=== PATIENT | male | born 1950 | race African-American/Black ===

== ENCOUNTER 2017-01-19 18:43 | Emergency (ER) | payer MEDICARE, OTHER ==
[2017-01-19] MEDS ORDERED: traMADol HCl 50 MG TAB ONE ×2 (19:42)
[2017-01-19] MEDS ORDERED: AMOXicillin 250 MG CAP ONE (19:43)
[2017-01-19] MEDS ORDERED: Ketorolac Tromethamine 60 MG/2 ML VIAL ONE (19:43)
== END 2017-01-19 20:11 | disposition home or self-care (01) ==
LOC: MADERS 18:43
DX: M26.621 Arthralgia of right temporomandibular joint (principal); I89.8 Other specified noninfective disorders of lymphatic vessels and lymph nodes; J44.9 Chronic obstructive pulmonary disease, unspecified; I25.10 Atherosclerotic heart disease of native coronary artery without angina pectoris; E11.9 Type 2 diabetes mellitus without complications; E78.5 Hyperlipidemia, unspecified; E78.00 Pure hypercholesterolemia, unspecified; I10 Essential (primary) hypertension; F32.9 Major depressive disorder, single episode, unspecified; Z79.82 Long term (current) use of aspirin; Z79.84 Long term (current) use of oral hypoglycemic drugs; Z79.899 Other long term (current) drug therapy
CPT/HCPCS: 96372; J1885

== ENCOUNTER 2017-05-15 10:54 | Emergency (ER) | payer MEDICARE, OTHER ==
[2017-05-15] MEDS ORDERED: Tetracaine 0.5% OPHTH SOLN/PF 4 ML BOT ONE (11:15)
[2017-05-15] MEDS ORDERED: Tobramycin Sulfate 0.3% Ophth Susp 5 ml Bottle ONE (11:54)
== END 2017-05-15 12:02 | disposition home or self-care (01) ==
LOC: MADERS 10:54
DX: T15.02XA Foreign body in cornea, left eye, initial encounter (principal); T15.12XA Foreign body in conjunctival sac, left eye, initial encounter; J44.9 Chronic obstructive pulmonary disease, unspecified; E11.9 Type 2 diabetes mellitus without complications; E78.5 Hyperlipidemia, unspecified; I10 Essential (primary) hypertension; I25.119 Atherosclerotic heart disease of native coronary artery with unspecified angina pectoris; F32.9 Major depressive disorder, single episode, unspecified; Z79.82 Long term (current) use of aspirin; Z79.899 Other long term (current) drug therapy
CPT/HCPCS: 65205

== ENCOUNTER 2017-07-13 17:08 | Emergency (ER) | payer MEDICARE, MEDICAID, OTHER | END 2017-07-13 19:00 | disposition left against medical advice (07) | LOC: MADERS 17:08 | DX: E11.65 Type 2 diabetes mellitus with hyperglycemia (principal); J44.9 Chronic obstructive pulmonary disease, unspecified; I25.10 Atherosclerotic heart disease of native coronary artery without angina pectoris; E78.5 Hyperlipidemia, unspecified; I10 Essential (primary) hypertension; F32.9 Major depressive disorder, single episode, unspecified; Z79.82 Long term (current) use of aspirin; Z79.899 Other long term (current) drug therapy; Z79.4 Long term (current) use of insulin | CPT/HCPCS: 36416 ==

== ENCOUNTER 2018-01-12 13:53 | Emergency (ER) | payer MEDICARE, OTHER ==
[~2018-01-12 13:53] MED LIST: Sodium Chloride 0.9% 1,000 ML BAG ONE
--- NOTE | 2018-01-12 14:28 | RAD ---
PORTABLE AP CHEST: Date: 01/12/18 HISTORY: Dyspnea. COMPARISON: 04/03/17. FINDINGS: Cardiac silhouette is magnified by projection. Pulmonary vasculature is within normal limits. The james gs remain clear. Degenerative changes are again present in the spine. IMPRESSION: Stable chest without evidence of an acute cardiopulmonary process. POS: [facility]
[2018-01-12 14:34] LABS: #Basophils 0.1 thou/uL (0.0-0.2); #Eosinphils 0.1 thou/uL (0.0-0.7); #Lymphocytes 1.7 thou/uL (1.20-3.40); #Monocytes 0.4 thou/uL (0.11-0.59); #Neutrophils 3.1 thou/uL (1.40-6.50); %Basophils 1.2 % (0.0-1.0); %Eosinophils 1.6 % (0.0-10.0); %Lymphocytes 31.8 % (21.0-51.0); %Monocytes 7.3 % (0.0-10.0); %Neutrophils 58.2 % (42.0-75.0); Hemoglobin 12.2 g/dL (14.0-18.0); Mean Corpuscular HGB CONC 31.4 g/dL (32.0-36.0); Mean Corpuscular Hemoglobin 25.4 pg (27.0-31.0); Mean Corpuscular Volume 80.8 fl (80.0-94.0); Mean Platelet Volume 7.3 fL (7.4-10.4); Platelet Count 184 thou/uL (130-400); RBC Distribution Width 12.4 % (11.5-14.5); Red Blood Cell (RBC) Count 4.82 mill/uL (4.70-6.10); White Blood Cell (WBC) Count 5.3 thou/uL (4.8-10.8)
[2018-01-12 14:52] LABS: Anion Gap 15 mmol/L (10-20); BUN (Urea Nitrogen) 16 mg/dL (8.4-25.7); Calc. Creatinine Clearance 0 mL/min (70-130); Calcium 9.1 mg/dL (7.8-10.44); Carbon Dioxide 29 mmol/L (23-31); Chloride 105 mmol/L (98-107); Estimated GFR-MDRD 45; Glucose 169 mg/dL (80-115); Potassium 4.3 mmol/L (3.5-5.1); Sodium 145 mmol/L (136-145)
[2018-01-12] MEDS ORDERED: Ondansetron HCl/PF 4 MG/2 ML Vial ONE ×2 (15:09)
== END 2018-01-12 15:50 | disposition home or self-care (01) ==
LOC: MADERS 13:53
DX: R53.1 Weakness (principal); R42 Dizziness and giddiness; J44.9 Chronic obstructive pulmonary disease, unspecified; E11.9 Type 2 diabetes mellitus without complications; E78.5 Hyperlipidemia, unspecified; I10 Essential (primary) hypertension; F32.9 Major depressive disorder, single episode, unspecified; Z79.82 Long term (current) use of aspirin; Z79.4 Long term (current) use of insulin; Z79.899 Other long term (current) drug therapy
CPT/HCPCS: 71045; 80048; 82553; 83880; 84484; 85025; 93005; 94760; 96361; 96374; J2405; J7050

== ENCOUNTER 2018-03-21 21:42 | Emergency (ER) | payer MEDICARE, OTHER | END 2018-03-21 21:59 | disposition left against medical advice (07) | LOC: MADERS 21:42 | DX: Z53.21 Procedure and treatment not carried out due to patient leaving prior to being seen by health care provider (principal) ==

== ENCOUNTER 2019-02-03 19:22 | Emergency (ER) | payer OTHER ==
[2019-02-03] MEDS ORDERED: Aspirin 325 MG TAB ONE (19:36)
[2019-02-03] MEDS ORDERED: Nitroglycerin 0.4 MG TAB 1 EACH ONE ×2 (19:36→20:35)
[2019-02-03 19:46] LABS: #Basophils 0.1 thou/uL (0.0-0.2); #Eosinphils 0.1 thou/uL (0.0-0.7); #Lymphocytes 2.4 thou/uL (1.20-3.40); #Monocytes 0.5 thou/uL (0.11-0.59); #Neutrophils 3.2 thou/uL (1.40-6.50); %Basophils 2.2 % (0.0-1.0); %Eosinophils 1.5 % (0.0-10.0); %Monocytes 7.7 % (0.0-10.0); %Neutrophils 50.6 % (42.0-75.0); Hemoglobin 12.1 g/dL (14.0-18.0); Mean Corpuscular HGB CONC 32.4 g/dL (32.0-36.0); Mean Corpuscular Hemoglobin 26.3 pg (27.0-31.0); Mean Platelet Volume 8.9 fL (7.4-10.4); Platelet Count 184 thou/uL (130-400); RBC Distribution Width 12.9 % (11.5-14.5); Red Blood Cell (RBC) Count 4.62 mill/uL (4.70-6.10); White Blood Cell (WBC) Count 6.3 thou/uL (4.8-10.8)
[2019-02-03 19:58] LABS: ALT (SGPT) Less than 7 U/L (8-55); AST (SGOT) 16 U/L (5-34); Albumin 3.7 g/dL (3.4-4.8); Alkaline Phosphatase 74 U/L (40-150); Anion Gap 13 mmol/L (10-20); BUN (Urea Nitrogen) 23 mg/dL (8.4-25.7); Bilirubin, Total 0.6 mg/dL (0.2-1.2); Calc. Creatinine Clearance 0 mL/min (70-130); Calcium 8.7 mg/dL (7.8-10.44); Carbon Dioxide 26 mmol/L (23-31); Chloride 105 mmol/L (98-107); Estimated GFR-MDRD 47; Globulin 3.8 g/dL (2.4-3.5); Glucose 194 mg/dL (83-110); Potassium 4.3 mmol/L (3.5-5.1); Protein, Total 7.5 g/dL (5.8-8.1); Sodium 140 mmol/L (136-145)
--- NOTE | 2019-02-03 20:42 | RAD ---
PORTABLE CHEST: 02/03/19 HISTORY: Dizziness. Chest pain. Lung perdomo are clear. Heart size is normal. Vasculature normal. IMPRESSION: No acute process. POS: [facility]
== END 2019-02-03 21:16 | disposition short-term general hospital (02) ==
LOC: MADERS 19:22
DX: I45.5 Other specified heart block (principal); J44.9 Chronic obstructive pulmonary disease, unspecified; I20.9 Angina pectoris, unspecified; E11.9 Type 2 diabetes mellitus without complications; E78.5 Hyperlipidemia, unspecified; I10 Essential (primary) hypertension; F32.9 Major depressive disorder, single episode, unspecified; Z79.4 Long term (current) use of insulin; Z79.82 Long term (current) use of aspirin; Z79.899 Other long term (current) drug therapy
CPT/HCPCS: 71045; 80053; 83880; 84443; 84484; 85025; 93005; 94760

== ENCOUNTER 2019-06-06 01:40 | Emergency (ER) | payer OTHER, MEDICAID ==
[2019-06-06 02:35] LABS: #Basophils 0.1 thou/uL (0.0-0.2); #Eosinphils 0.1 thou/uL (0.0-0.7); #Monocytes 0.7 thou/uL (0.11-0.59); %Basophils 1.7 % (0.0-1.0); %Eosinophils 0.9 % (0.0-10.0); %Lymphocytes 22.1 % (21.0-51.0); %Neutrophils 67.3 % (42.0-75.0); Hemoglobin 10.6 g/dL (14.0-18.0); Mean Corpuscular HGB CONC 31.5 g/dL (32.0-36.0); Mean Corpuscular Hemoglobin 26.1 pg (27.0-31.0); Mean Corpuscular Volume 82.8 fL (78.0-98.0); Mean Platelet Volume 8.7 fL (7.4-10.4); Platelet Count 135 thou/uL (130-400); RBC Distribution Width 12.5 % (11.5-14.5); Red Blood Cell (RBC) Count 4.08 mill/uL (4.70-6.10); White Blood Cell (WBC) Count 8.9 thou/uL (4.8-10.8)
[2019-06-06 02:47] LABS: ALT (SGPT) 11 U/L (8-55); AST (SGOT) 16 U/L (5-34); Albumin 3.6 g/dL (3.4-4.8); Alkaline Phosphatase 78 U/L (40-110); Anion Gap 15 mmol/L (10-20); BUN (Urea Nitrogen) 40 mg/dL (8.4-25.7); Bilirubin, Total 0.3 mg/dL (0.2-1.2); CK (CPK) 167 U/L (30-200); Calc. Creatinine Clearance 0 mL/min (70-130); Calcium 8.1 mg/dL (7.8-10.44); Carbon Dioxide 20 mmol/L (23-31); Chloride 110 mmol/L (98-107); Estimated GFR-MDRD 44; Globulin 3.1 g/dL (2.4-3.5); Glucose 277 mg/dL (83-110); Potassium 4.8 mmol/L (3.5-5.1); Protein, Total 6.7 g/dL (5.8-8.1); Sodium 140 mmol/L (136-145)
[2019-06-06 02:50] LABS: CKMB 1.9 ng/mL (0-6.6)
[2019-06-06] MEDS ORDERED: Sodium Chloride 0.9% 500 ML ONE (03:33)
[2019-06-06] MEDS ORDERED: Rivaroxaban 10 MG TAB PO SCH (04:45)
--- NOTE | 2019-06-06 07:46 | CT ---
PRELIMINARY REPORT/[facility]/EMERGENCY AFTER HOURS PROCEDURE Addendum created by Kris Cade MD on 06/06/2019 3:57 AM Central Time ([place] & [place]) Findings discussed with JOSE L RODRIGUEZ MD at time of interpretation. Initial Report created on 06/06/2019 3:54 AM Central Time ([place] & [place]) PROCEDURE INFORMATION: Exam: CT Angiography Chest With Contrast Exam date and time: 06/06/2019 3:19 AM Clinical history: 69 years old, male; Chest pain; Type not specified; Prior surgery; Surgery date: 6+ months; Surgery type: Heart stint TECHNIQUE: Imaging protocol: Computed tomographic angiography of the chest with intravenous contrast. 3D rendering: MIP reconstructed images were created and reviewed. Contrast material: ISOVUE 370; Contrast volume: 120 ml; Contrast route: IV; COMPARISON: No relevant prior studies available. FINDINGS: Pulmonary arteries: Acute subsegmental right lower lobe PE. Aorta: Unremarkable. No aortic aneurysm. No aortic dissection. Thyroid: Mild thyromegaly. Lungs: Indeterminate 5 mm right upper lobe pulmonary nodule. Lungs otherwise clear. Pleural space: Unremarkable. No pneumothorax. No pleural effusion. Heart: No evidence of right heart strain. Mediastinum: Esophagus is unremarkable. Lymph nodes: Unremarkable. No enlarged lymph nodes. Bones/joints: Unremarkable. No acute fracture. Soft tissues: Unremarkable. Other findings: No pulmonary infarction. IMPRESSION: 1. Acute subsegmental right lower lobe PE. 2. Mild thyromegaly. 3. Indeterminate 5 mm right upper lobe pulmonary nodule. Thank you for allowing us to participate in the care of your patient. Dictated and Authenticated by: Kris Cade MD 06/06/2019 3:54 AM Central Time ([place] & [place]) FINAL REPORT I agree with the preliminary report provided. There is a focal filling defect within a subsegmental pulmonary arterial branch of the posterolateral right lower lobe. There is a 5 mm pulmonary nodule within the posterior segment of the right upper lobe. A follow-up C T evaluation in six months is recommended to documented stability. CODE QA POS:
--- NOTE | 2019-06-06 09:33 | RAD ---
CHEST ONE VIEW: INDICATIONS: History of chest pain. COMPARISON: Prior exam dated 02/03/2019. FINDINGS/IMPRESSION: There is mild cardiomegaly. The lungs are clear. No acute osseous abnormality is evident. POS: [facility]
[2019-06-06] MEDS ORDERED: Sodium Chloride 0.9% 100 ML BAG ONE (09:48)
[2019-06-06] MEDS ORDERED: Iopamidol 370 76% 125 ML VIAL FS ONE (09:48)
== END 2019-06-06 05:20 | disposition home or self-care (01) ==
LOC: MADERS 01:40
DX: I26.99 Other pulmonary embolism without acute cor pulmonale (principal); J20.9 Acute bronchitis, unspecified; J44.9 Chronic obstructive pulmonary disease, unspecified; I25.10 Atherosclerotic heart disease of native coronary artery without angina pectoris; E11.9 Type 2 diabetes mellitus without complications; E78.5 Hyperlipidemia, unspecified; E78.00 Pure hypercholesterolemia, unspecified; I10 Essential (primary) hypertension; I25.2 Old myocardial infarction; F32.9 Major depressive disorder, single episode, unspecified; Z95.5 Presence of coronary angioplasty implant and graft; Z86.73 Personal history of transient ischemic attack (TIA), and cerebral infarction without residual deficits; Z79.82 Long term (current) use of aspirin; Z79.899 Other long term (current) drug therapy
CPT/HCPCS: 71045; 71275; 80053; 82550; 82553; 84484; 85025; 85379; 93005; 94760; 96372; J1040; J3490; J7050; Q9967

== ENCOUNTER 2019-11-08 11:53 | Emergency (ER) | payer MEDICARE, OTHER ==
[2019-11-08 13:03] LABS: #Basophils 0.1 thou/uL (0.0-0.2); #Eosinphils 0.1 thou/uL (0.0-0.7); #Lymphocytes 2.1 thou/uL (1.20-3.40); #Monocytes 0.5 thou/uL (0.11-0.59); #Neutrophils 3.3 thou/uL (1.40-6.50); %Basophils 1.6 % (0.0-1.0); %Eosinophils 1.5 % (0.0-10.0); %Lymphocytes 35.3 % (21.0-51.0); %Monocytes 7.6 % (0.0-10.0); Hemoglobin 11.6 g/dL (14.0-18.0); Mean Corpuscular HGB CONC 29.8 g/dL (32.0-36.0); Mean Corpuscular Hemoglobin 25.2 pg (27.0-31.0); Mean Corpuscular Volume 84.5 fL (78.0-98.0); Platelet Count 174 thou/uL (130-400); RBC Distribution Width 11.9 % (11.5-14.5); Red Blood Cell (RBC) Count 4.61 mill/uL (4.70-6.10); White Blood Cell (WBC) Count 6.1 thou/uL (4.8-10.8)
--- NOTE | 2019-11-08 13:09 | RAD ---
PORTABLE CHEST 1 VIEW: Date: 11/08/2019 Time: 1305 hours HISTORY: Dyspnea. FINDINGS: Comparison made with exam of 07/30/2019. The heart size is borderline. The aorta is tortuous. The lungs are expanded without focal areas of co nsolidation, pneumothoraces, or pleural effusions. IMPRESSION: No radiographic evidence of acute cardiopulmonary process. POS: [facility]
[2019-11-08 13:17] LABS: ALT (SGPT) 12 U/L (8-55); AST (SGOT) 15 U/L (5-34); Albumin 3.1 g/dL (3.4-4.8); Alkaline Phosphatase 69 U/L (40-110); Anion Gap 12 mmol/L (10-20); BUN (Urea Nitrogen) 27 mg/dL (8.4-25.7); Bilirubin, Total 0.4 mg/dL (0.2-1.2); Calc. Creatinine Clearance 0 mL/min (70-130); Calcium 7.9 mg/dL (7.8-10.44); Carbon Dioxide 26 mmol/L (23-31); Chloride 108 mmol/L (98-107); Estimated GFR-MDRD 42; Globulin 3.1 g/dL (2.4-3.5); Glucose 173 mg/dL (83-110); Potassium 3.5 mmol/L (3.5-5.1); Protein, Total 6.2 g/dL (5.8-8.1); Sodium 142 mmol/L (136-145)
--- NOTE | 2019-11-08 13:23 | CT ---
Exam: CT brain PROVIDED CLINICAL HISTORY: Altered mental status COMPARISON: 04/03/2017 FINDINGS: The ventricular system is normal in size and morphology. No evidence for intracranial hemorrhage or mass effect. The extracranial soft tissues and osseous structures demonstrate no evidence for an acute abnormality. Chronic microvascular ischemic changes involving the cerebral white matter are red emonstrated. IMPRESSION: No evidence for intracranial hemorrhage or mass effect.
[2019-11-08] MEDS ORDERED: Aspirin Chewable 81 MG TAB ONE (13:55)
[2019-11-08 14:10] LABS: CKMB 2.3 ng/mL (0-6.6)
== END 2019-11-08 15:08 | disposition left against medical advice (07) ==
LOC: MADERS 11:53
DX: R20.2 Paresthesia of skin (principal); I44.1 Atrioventricular block, second degree; J44.9 Chronic obstructive pulmonary disease, unspecified; I25.10 Atherosclerotic heart disease of native coronary artery without angina pectoris; E78.5 Hyperlipidemia, unspecified; E78.00 Pure hypercholesterolemia, unspecified; I10 Essential (primary) hypertension; F32.9 Major depressive disorder, single episode, unspecified; Z79.82 Long term (current) use of aspirin; Z79.01 Long term (current) use of anticoagulants; Z79.899 Other long term (current) drug therapy; Z79.4 Long term (current) use of insulin
CPT/HCPCS: 36416; 70450; 71045; 80053; 82553; 83880; 84484; 85025; 93005

== ENCOUNTER 2020-02-23 17:16 | Emergency (ER) | payer MEDICARE, OTHER ==
--- NOTE | 2020-02-23 18:29 | RAD ---
Exam: XR Wrist 3 Lt View STANDARD HISTORY: Left wrist injury. COMPARISON: None FINDINGS: There is a transverse fracture involving the most proximal left fifth metacarpal near the base of the metacarpal. Distal fracture fragment is slightly displaced laterally. 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 Mild degenerative changes in the carpal bones are also present. No additional fracture is seen, and there is no dislocation appreciated. Gorge icated osseous density seen adjacent to the ulnar styloid process which may represent an accessory center of of ossification versus a tiny remote avulsion injury. Mild subcutaneous soft tissue swelling is seen at the dorsal aspect of the hand. IMPRESSION: Fracture base of the proximal right fifth metacarpal.
--- NOTE | 2020-02-23 18:29 | RAD ---
AP VIEW OF THE CHEST WITH THREE VIEWS OF THE LEFT CHEST WALL: 02/23/20 INDICATION: Left rib injury. COMPARISON: Prior exam dated 11/03/13. FINDINGS: The lungs are clear. Heart size is normal. No pleural effusion is evident. No displaced left sided ri b fracture is demonstrated. IMPRESSION: 1. No displaced left sided rib fracture. 2. No acute cardiopulmonary abnormality. POS: [facility]
== END 2020-02-23 19:28 | disposition home or self-care (01) ==
LOC: MADERS 17:16
DX: S62.317A Displaced fracture of base of fifth metacarpal bone, left hand, initial encounter for closed fracture (principal); I10 Essential (primary) hypertension; J44.9 Chronic obstructive pulmonary disease, unspecified; I25.119 Atherosclerotic heart disease of native coronary artery with unspecified angina pectoris; E11.9 Type 2 diabetes mellitus without complications; E78.5 Hyperlipidemia, unspecified; E78.00 Pure hypercholesterolemia, unspecified; F32.9 Major depressive disorder, single episode, unspecified; Z79.899 Other long term (current) drug therapy; Z79.82 Long term (current) use of aspirin; W01.0XXA Fall on same level from slipping, tripping and stumbling without subsequent striking against object, initial encounter
CPT/HCPCS: 26600

== ENCOUNTER 2020-03-06 21:51 | Emergency (ER) | payer MEDICARE, OTHER ==
--- NOTE | 2020-03-06 22:39 | RAD ---
XR Foot Lt 3 View STANDARD History: Injury with weightbearing pain Comparison: None. Findings: High-grade degenerative disease small toe distal interphalangeal joint. Fifth metatarsal tu berosity is intact. Mild metatarsus primus varus and hallux valgus. Mild great toe metatarsal phalangeal and interphalangeal joint space narrowing with sclerosis and osteophyte formation. Lisfranc interval appears to be maintained. Impression: Chronic findings. No acute displaced fracture or malalignment of the foot.
[2020-03-06] MEDS ORDERED: Acetaminophen/Codeine 30-300mg Tablet ONE (22:48)
[2020-03-06] MEDS ORDERED: Cephalexin 500 MG CAP ONE (22:48)
== END 2020-03-06 22:50 | disposition home or self-care (01) ==
LOC: MADERS 21:51
DX: L03.116 Cellulitis of left lower limb (principal); S90.812A Abrasion, left foot, initial encounter; M79.672 Pain in left foot; J44.9 Chronic obstructive pulmonary disease, unspecified; I25.119 Atherosclerotic heart disease of native coronary artery with unspecified angina pectoris; I25.10 Atherosclerotic heart disease of native coronary artery without angina pectoris; E78.5 Hyperlipidemia, unspecified; E78.00 Pure hypercholesterolemia, unspecified; E11.9 Type 2 diabetes mellitus without complications; I10 Essential (primary) hypertension; F32.9 Major depressive disorder, single episode, unspecified; Z79.82 Long term (current) use of aspirin; Z79.899 Other long term (current) drug therapy; Z79.4 Long term (current) use of insulin; Y04.0XXA Assault by unarmed brawl or fight, initial encounter

== ENCOUNTER 2020-03-14 00:21 | Emergency (ER) | payer MEDICARE, OTHER ==
[2020-03-14] MEDS ORDERED: Acetaminophen 500 MG TAB ONE (01:03)
--- NOTE | 2020-03-14 07:32 | RAD ---
Exam:Left hand 3 views HISTORY: Pain. Status post fall. Recent left wrist fracture. COMPARISON: 02/23/2020 left wrist radiograph series FINDINGS: Chronic degenerative changes involving the first carpal metacarpal articulation as well as the scaphoid trapezium articulation. Widening of the scapholunate joint space is redemonstrated. Distal radius and ulna do not demonstrate fracture. Redemonstration of a nonhealed fracture involving the base of the fifth metacarpal. Additional fractu res are not appreciated. There is polyarticular degenerative change. IMPRESSION: 1. Chronic changes involving the carpal bones as described above. Concern for scapholunate injury, co nsider MRI 2. Nonhealed fracture in the proximal.
== END 2020-03-14 01:09 | disposition home or self-care (01) ==
LOC: MADERS 00:21
DX: S62.315A Displaced fracture of base of fourth metacarpal bone, left hand, initial encounter for closed fracture (principal); S62.317A Displaced fracture of base of fifth metacarpal bone, left hand, initial encounter for closed fracture; I25.119 Atherosclerotic heart disease of native coronary artery with unspecified angina pectoris; J44.9 Chronic obstructive pulmonary disease, unspecified; E78.5 Hyperlipidemia, unspecified; I25.2 Old myocardial infarction; E78.00 Pure hypercholesterolemia, unspecified; I10 Essential (primary) hypertension; Z86.73 Personal history of transient ischemic attack (TIA), and cerebral infarction without residual deficits; F32.9 Major depressive disorder, single episode, unspecified; Z79.4 Long term (current) use of insulin; Z79.899 Other long term (current) drug therapy; Z79.82 Long term (current) use of aspirin; W18.30XA Fall on same level, unspecified, initial encounter
CPT/HCPCS: 26600

== ENCOUNTER 2020-08-19 11:48 | Emergency (ER) | payer MEDICARE, OTHER ==
[2020-08-20] MEDS ORDERED: Acetaminophen/Codeine 30-300mg Tablet ONE (00:12)
== END 2020-08-20 00:15 | disposition home or self-care (01) ==
LOC: MADERS 23:47
DX: T83.091A Other mechanical complication of indwelling urethral catheter, initial encounter (principal); J44.9 Chronic obstructive pulmonary disease, unspecified; I25.119 Atherosclerotic heart disease of native coronary artery with unspecified angina pectoris; I25.2 Old myocardial infarction; I10 Essential (primary) hypertension; E11.9 Type 2 diabetes mellitus without complications; E78.5 Hyperlipidemia, unspecified; E78.00 Pure hypercholesterolemia, unspecified; Z86.73 Personal history of transient ischemic attack (TIA), and cerebral infarction without residual deficits; Z79.899 Other long term (current) drug therapy; Z79.82 Long term (current) use of aspirin; Z79.01 Long term (current) use of anticoagulants; Z79.4 Long term (current) use of insulin
CPT/HCPCS: 51702

== ENCOUNTER 2020-08-30 16:50 | Emergency (ER) | payer MEDICARE, OTHER ==
[2020-08-30] MEDS ORDERED: Ciprofloxacin 500 MG TAB ONE ×2 (18:00→18:01)
[2020-08-30] MEDS ORDERED: Tamsulosin HCl 0.4 MG CAP ONE (18:00)
[2020-08-30 18:15] LABS: Bilirubin Negative (Negative); Blood, Urine Moderate (Negative); Clarity Cloudy (Clear); Glucose, Urine (Dipstick) Negative (Negative); Ketone, Urine Negative (Negative); Leukocyte Moderate (Negative); Nitrite Negative (Negative); Protein, Urine (Dipstick) 100 mg/dL (Neg-Trace); Urobilinogen 0.2 mg/dL (Less than 2)
[2020-08-30 18:19] LABS: Squamous Epithelial 0-3 HPF (0-3); WBC/HPF Greater Than 50 HPF (0-3)
[2020-08-30 18:20] LABS: Bacteria/HPF 2+ HPF (None Seen)
== END 2020-08-30 18:15 | disposition home or self-care (01) ==
LOC: MADERS 16:50
DX: T83.091A Other mechanical complication of indwelling urethral catheter, initial encounter (principal); J44.9 Chronic obstructive pulmonary disease, unspecified; I25.119 Atherosclerotic heart disease of native coronary artery with unspecified angina pectoris; E11.9 Type 2 diabetes mellitus without complications; E78.5 Hyperlipidemia, unspecified; E78.00 Pure hypercholesterolemia, unspecified; I25.2 Old myocardial infarction; Z86.73 Personal history of transient ischemic attack (TIA), and cerebral infarction without residual deficits; Z79.82 Long term (current) use of aspirin; Z79.01 Long term (current) use of anticoagulants; Z79.899 Other long term (current) drug therapy; Z79.4 Long term (current) use of insulin
CPT/HCPCS: 51702; 81003; 81015; 87077; 87086

== ENCOUNTER 2020-10-16 11:00 | Emergency (ER) | payer MEDICARE, MEDICAID ==
--- NOTE | 2020-10-16 11:53 | RAD ---
PORTABLE CHEST: Date: 10/16/2020 HISTORY: Chest pain. COMPARISON: 08/15/2020. FINDINGS: Mild cardiomegaly is stable. Pacemaker leads unchanged. Lungs appear clear. No evidence of vascular congestion or effusion. IMPRESSION: No acute findings. POS: [facility]
[2020-10-16 12:19] LABS: #Basophils 0.1 thou/uL (0.0-0.2); #Eosinphils 0.1 thou/uL (0.0-0.7); #Lymphocytes 1.8 thou/uL (1.20-3.40); #Monocytes 0.4 thou/uL (0.11-0.59); #Neutrophils 3.4 thou/uL (1.40-6.50); %Basophils 1.8 % (0.0-1.0); %Eosinophils 1.9 % (0.0-10.0); %Lymphocytes 30.3 % (21.0-51.0); %Monocytes 7.6 % (0.0-10.0); %Neutrophils 58.4 % (42.0-75.0); Hemoglobin 11.4 g/dL (14.0-18.0); Mean Corpuscular HGB CONC 31.4 g/dL (32.0-36.0); Mean Corpuscular Hemoglobin 25.9 pg (27.0-31.0); Mean Corpuscular Volume 82.6 fL (78.0-98.0); Mean Platelet Volume 7.9 fL (7.4-10.4); Platelet Count 152 thou/uL (130-400); RBC Distribution Width 12.7 % (11.5-14.5); Red Blood Cell (RBC) Count 4.41 mill/uL (4.70-6.10); White Blood Cell (WBC) Count 5.8 thou/uL (4.8-10.8)
[2020-10-16 12:20] LABS: INR-International Normal Ratio 0.9; Prothrombin Time 12.6 sec (12.0-14.7)
[2020-10-16 12:28] LABS: Bilirubin Negative (Negative); Blood, Urine Moderate (Negative); Clarity Slightly Cloudy (Clear); Glucose, Urine (Dipstick) 500 mg/dL (Negative); Ketone, Urine Negative (Negative); Leukocyte Moderate (Negative); Nitrite Negative (Negative); Protein, Urine (Dipstick) 100 mg/dL (Neg-Trace); Specific Gravity, Urine 1.025 (1.005-1.030); Urobilinogen 0.2 mg/dL (Less than 2)
[2020-10-16 12:31] LABS: ALT (SGPT) 15 U/L (8-55); AST (SGOT) 16 U/L (5-34); Albumin 3.5 g/dL (3.4-4.8); Alkaline Phosphatase 86 U/L (40-110); Anion Gap 14 mmol/L (10-20); BUN (Urea Nitrogen) 36 mg/dL (8.4-25.7); Bilirubin, Total 0.4 mg/dL (0.2-1.2); CK (CPK) 151 U/L (30-200); CRP (Inflammatory) Less than 0.50 mg/dL (= or < 0.5); Calc. Creatinine Clearance 0 mL/min (70-130); Calcium 8.4 mg/dL (7.8-10.44); Carbon Dioxide 24 mmol/L (23-31); Chloride 108 mmol/L (98-107); Globulin 3.4 g/dL (2.4-3.5); Glucose 300 mg/dL (83-110); Potassium 4.4 mmol/L (3.5-5.1); Protein, Total 6.9 g/dL (5.8-8.1); Sodium 142 mmol/L (136-145)
[2020-10-16 12:37] LABS: Bacteria/HPF 1+ HPF (None Seen); Squamous Epithelial 0-3 HPF (0-3); Transitional Epithelial 0-3 HPF (None Seen); WBC/HPF Greater Than 50 HPF (0-3)
--- NOTE | 2020-10-16 12:37 | CT ---
CT HEAD WITHOUT IV CONTRAST COMPARISON: 11/08/2019 HISTORY: Multiple falls. Patient hit head 2 days ago. Injury after fall TECHNIQUE: Axial CT imaging at 5 mm intervals from vertex through skull base without contrast FINDINGS: There is decreased attenuation in the periventricular white matter which is nonspecific but likely re flective of chronic small vessel ischemic changes. Low-attenuation areas are again seen in the posterior aspect right basal ganglia as well as in the left thalamus related to remote lacunar infarc tions. Low-attenuation areas are seen in the ingrid bilaterally which may also be reflective of chronic small vessel ischemic changes. There is mild cerebral volume loss. The ventricular system is normal in size, shape, and position for the degree of sulcal atrophy. There is no evidence of an acute cortical infarction, hemorrhage, mass effect, or midline shift. Skull base has a normal CT appearance. Thickening of the umana of each maxillary antrum greater on the right likely sequela of chronic sinus itis. Minimal mucosal thickening is seen in the right maxillary antrum. Medial wall antrectomies are present. Deformity of the medial right orbital wall is again seen. Osseous structures appear intact. No depressed calvarial fracture is seen. There is mild scalp soft t issue swelling is seen in the posterior parietal region. IMPRESSION: 1. No acute intracranial abnormality demonstrated. 2. Stable chronic changes. 3. Small frontal scalp hematoma.
[2020-10-16 12:48] LABS: CKMB 3.1 ng/mL (0-6.6)
[2020-10-16] MEDS ORDERED: Sodium Chloride 0.9% 1,000 ML ONE (13:02)
[2020-10-16] MEDS ORDERED: Aspirin 325 MG TAB ONE (13:02)
== END 2020-10-16 14:05 | disposition short-term general hospital (02) ==
LOC: MADERS 11:00
DX: R07.9 Chest pain, unspecified (principal); R53.1 Weakness; J44.9 Chronic obstructive pulmonary disease, unspecified; I25.119 Atherosclerotic heart disease of native coronary artery with unspecified angina pectoris; E78.5 Hyperlipidemia, unspecified; E78.00 Pure hypercholesterolemia, unspecified; I25.2 Old myocardial infarction; Z86.73 Personal history of transient ischemic attack (TIA), and cerebral infarction without residual deficits; Z79.4 Long term (current) use of insulin; Z79.01 Long term (current) use of anticoagulants; Z79.82 Long term (current) use of aspirin
CPT/HCPCS: 36415; 70450; 71045; 80053; 81003; 81015; 82550; 82553; 83880; 84484; 85025; 85610; 86140; 93005; J7050

== ENCOUNTER 2021-02-13 09:12 | Outpatient (CLI) | payer MEDICARE ==
[2021-02-13 09:41] LABS: Anion Gap 18 mmol/L (10-20); BUN (Urea Nitrogen) 45 mg/dL (8.4-25.7); Calc. Creatinine Clearance 0 mL/min (70-130); Calcium 8.3 mg/dL (7.8-10.44); Carbon Dioxide 20 mmol/L (23-31); Chloride 107 mmol/L (98-107); Glucose 288 mg/dL (83-110); Phosphorus 3.4 mg/dL (2.3-4.7); Potassium 4.3 mmol/L (3.5-5.1); Sodium 141 mmol/L (136-145)
[2021-02-13 09:53] LABS: #Basophils 0.1 thou/uL (0.0-0.2); #Eosinphils 0.1 thou/uL (0.0-0.7); #Lymphocytes 1.7 thou/uL (1.20-3.40); #Monocytes 0.4 thou/uL (0.11-0.59); %Basophils 1.2 % (0.0-1.0); %Lymphocytes 32.1 % (21.0-51.0); %Monocytes 8.3 % (0.0-10.0); %Neutrophils 56.4 % (42.0-75.0); Giant Platelets SLIGHT; Hemoglobin 10.5 g/dL (14.0-18.0); Large Platelets SLIGHT; MDiff Complete? YES; Mean Corpuscular HGB CONC 28.9 g/dL (32.0-36.0); Mean Corpuscular Hemoglobin 24.6 pg (27.0-31.0); Mean Corpuscular Volume 85.1 fL (78.0-98.0); Mean Platelet Volume 10.2 fL (7.4-10.4); Platelet Count 129 thou/uL (130-400); Platelet Morphology Comment Appears Adequate; Polychromasia SLIGHT = 2-3 cells (100X) (0-2/hpf); RBC Distribution Width 13.3 % (11.5-14.5); Red Blood Cell (RBC) Count 4.28 mill/uL (4.70-6.10); White Blood Cell (WBC) Count 5.2 thou/uL (4.8-10.8)
== END 2021-02-13 09:13 | disposition home or self-care (01) ==
LOC: MADLAB 09:12
PROVIDERS: ATTEND Internal Medicine Nephrology
DX: N18.30 Chronic kidney disease, stage 3 unspecified (principal)
CPT/HCPCS: 80048; 83970; 84100; 85025

== ENCOUNTER 2021-04-23 15:05 | Outpatient (CLI) | payer MEDICAID, MEDICARE | END 2021-04-23 15:06 | disposition home or self-care (01) | LOC: MADRAD 15:05 | PROVIDERS: ATTEND Nurse Practitioner Family | DX: M25.462 Effusion, left knee (principal); M17.12 Unilateral primary osteoarthritis, left knee; W19.XXXD Unspecified fall, subsequent encounter ==

== ENCOUNTER 2021-11-14 15:26 | Emergency (ER) | payer MEDICARE, MEDICAID ==
[2021-11-14 17:42] LABS: #Basophils 0.1 thou/uL (0.0-0.2); #Eosinphils 0.1 thou/uL (0.0-0.7); #Lymphocytes 1.7 thou/uL (1.20-3.40); #Monocytes 0.6 thou/uL (0.11-0.59); #Neutrophils 6.5 thou/uL (1.40-6.50); %Basophils 0.9 % (0.0-1.0); %Monocytes 6.4 % (0.0-10.0); %Neutrophils 72.7 % (42.0-75.0); Hemoglobin 13.3 g/dL (14.0-18.0); Mean Corpuscular HGB CONC 32.2 g/dL (32.0-36.0); Platelet Count 165 thou/uL (130-400); Red Blood Cell (RBC) Count 5.11 mill/uL (4.70-6.10); White Blood Cell (WBC) Count 8.9 thou/uL (4.8-10.8)
[2021-11-14 17:50] LABS: ALT (SGPT) 11 U/L (8-55); AST (SGOT) 19 U/L (5-34); Albumin 3.5 g/dL (3.4-4.8); Alkaline Phosphatase 63 U/L (40-110); Anion Gap 17 mmol/L (10-20); BUN (Urea Nitrogen) 31 mg/dL (8.4-25.7); Bilirubin, Total 0.6 mg/dL (0.2-1.2); CK (CPK) 178 U/L (30-200); Calc. Creatinine Clearance 0 mL/min (70-130); Calcium 9.2 mg/dL (7.8-10.44); Carbon Dioxide 26 mmol/L (23-31); Chloride 103 mmol/L (98-107); Globulin 3.5 g/dL (2.4-3.5); Glucose 143 mg/dL (83-110); Lipase 14 U/L (8-78); Potassium 3.9 mmol/L (3.5-5.1); Sodium 142 mmol/L (136-145)
[2021-11-14] MEDS ORDERED: Aspirin Chewable 81 MG TAB ONE (19:29)
== END 2021-11-14 20:37 | disposition short-term general hospital (02) ==
LOC: MADERS 15:26
DX: R55 Syncope and collapse (principal); R61 Generalized hyperhidrosis; I45.89 Other specified conduction disorders; I49.8 Other specified cardiac arrhythmias; I10 Essential (primary) hypertension; J44.9 Chronic obstructive pulmonary disease, unspecified; I25.10 Atherosclerotic heart disease of native coronary artery without angina pectoris; E11.9 Type 2 diabetes mellitus without complications; E78.5 Hyperlipidemia, unspecified; E78.00 Pure hypercholesterolemia, unspecified; I25.2 Old myocardial infarction; Z86.73 Personal history of transient ischemic attack (TIA), and cerebral infarction without residual deficits; Z95.5 Presence of coronary angioplasty implant and graft
CPT/HCPCS: 36416; 70450; 71045; 80053; 82550; 82553; 83690; 84484; 85025; 93005; 36415-59

== ENCOUNTER 2022-06-04 21:50 | Emergency (ER) | payer MEDICARE, OTHER ==
[2022-06-04] MEDS ORDERED: Acetaminophen 500 MG TAB ONE (22:13)
== END 2022-06-04 23:30 | disposition home or self-care (01) ==
LOC: MADERS 21:50
DX: S39.012A Strain of muscle, fascia and tendon of lower back, initial encounter (principal); S00.03XA Contusion of scalp, initial encounter; S80.02XA Contusion of left knee, initial encounter; J44.9 Chronic obstructive pulmonary disease, unspecified; I25.10 Atherosclerotic heart disease of native coronary artery without angina pectoris; E11.9 Type 2 diabetes mellitus without complications; E78.00 Pure hypercholesterolemia, unspecified; Y04.0XXA Assault by unarmed brawl or fight, initial encounter
CPT/HCPCS: 36416; 70450; 72131